=== PATIENT | male | born 1940 | race Caucasian/White ===

== ENCOUNTER 2016-12-07 10:00 | Emergency (ER) | payer MEDICARE, OTHER ==
[~2016-12-07] VITALS: Ht 190.5 cm; Wt 93.6 kg
[2016-12-07 10:07] VITALS: TEMP 97.6
[2016-12-07] MEDS ORDERED: VALIUM 5MG T5 MG/TAB PO (10:32)
[2016-12-07] MEDS ORDERED: NORVASC 5MG5 MG/TAB PO (10:33)
[2016-12-07] MEDS ORDERED: ZYLOPRIM 300MG300 MG PO (10:33)
[2016-12-07] MEDS ORDERED: SINEQUAN 1010 MG/CAP PO (10:38)
[2016-12-07] MEDS ORDERED: COREG 25MG25 MG/TAB PO (10:38)
[2016-12-07] MEDS ORDERED: PEPCID 20MG TAB20 MG PO (10:39)
[2016-12-07] MEDS ORDERED: ZETIA 10MG TAB10 MG PO (10:39)
[2016-12-07] MEDS ORDERED: BENICAR40 MG PO (10:39)
[2016-12-07 10:40] LABS: BASO # 0.1 (0.0-0.2); BASO % 1.2 % (0.0-2.0); EOS # 0.2 (0.0-0.7); GRAN # 4.4 (1.4-6.5); GRAN % 59.4 % (42.2-75.2); HEMATOCRIT 43.8 % (42.0-52.0); HEMOGLOBIN 14.5 g/dl (13.5-18.0); LYMPH # 1.8 (1.2-3.4); LYMPH % 24.4 % (20.0-51.0); MEAN CELL VOLUME 98 fl (80.0-100.0); MEAN CORPUSCULAR HEMOGLOBIN 32 pg (27.0-31.0); MEAN CORPUSCULAR HGB CONC 33 g/dl (33.0-37.0); MEAN PLATELET VOLUME 10.2 fl (7.4-10.4); MONO # 0.9 (0.1-0.6); MONO % 11.9 % (1.7-9.3); PLATELET COUNT 185 K/mm3 (130-400); RED BLOOD COUNT 4.49 M/mm3 (4.20-5.60); REDCELL DISTRIBUTION WIDTH-CV 14.1 % (11.5-14.5); WHITE BLOOD COUNT 7.4 K/mm3 (4.8-10.8)
[2016-12-07] MEDS ORDERED: ASPIRIN 32325 MG/TAB PO (10:40)
[2016-12-07] MEDS ORDERED: PROSCAR 5MG5 MG PO (10:40)
[2016-12-07] MEDS ORDERED: PLAVIX 75MG TAB75 MG PO (10:40)
[2016-12-07] MEDS ORDERED: NEURONTIN300 MG/CAP PO (10:41)
[2016-12-07] MEDS ORDERED: AMBIEN 10MG10 MG PO (10:42)
[2016-12-07] MEDS ORDERED: NORCO 325 MG-51 TAB PO (10:43)
[2016-12-07 10:52] LABS: PROTHROMBIN TIME 10.9 SECONDS (9.7-12.8)
[2016-12-07 10:54] LABS: PARTIAL THROMBOPLASTIN TIME 25.3 SECONDS (26.0-37.0)
[2016-12-07 10:59] LABS: ADJUSTED CALCIUM 9.8 mg/dL (8.4-10.2); ALBUMIN 3.6 gm/dL (3.5-5.0); CALCIUM 9.5 mg/dL (8.4-10.2); CREATININE, serum 1.24 mg/dL (0.66-1.25); POTASSIUM 4.2 mmol/L (3.4-5.0); TOTAL PROTEIN 6.7 gm/dL (6.4-8.2)
[2016-12-07 13:59] LABS: PH 6 (5-8); SQUAMOUS EPITHELIAL None Seen /hpf; URINE APPEARANCE Clear; URINE BACTERIA None Seen /hpf; URINE BILIRUBIN Negative (NEGATIVE); URINE BLOOD Negative (NEGATIVE); URINE COLOR Yellow; URINE GLUCOSE Negative (NEGATIVE); URINE KETONE Negative (NEGATIVE); URINE RBC 0-2 /hpf; URINE UROBILINOGEN Negative (NEGATIVE); URINE WBC 0-2 /hpf
[2016-12-07 14:05] LABS: AMPHETAMINE URINE NEGATIVE; BARBITURATES URINE NEGATIVE; BENZODIAZEPINES URINE NEGATIVE; BUPRENORPHINE URINE NEGATIVE; METHADONE URINE NEGATIVE; OPIATES URINE NEGATIVE; OXYCODONE URINE NEGATIVE; PHENCYCLIDINE URINE NEGATIVE; PROPOXYPHENE URINE NEGATIVE; THC CANNABINOIDS URINE NEGATIVE
[2016-12-07 16:14] VITALS: BP 129/77; PULSE 65
== END 2016-12-07 16:15 | disposition home or self-care (01) ==
LOC: COL.ER 10:00
PROVIDERS: Emergency Medicine
DX: G45.9 Transient cerebral ischemic attack, unspecified (principal); I25.10 Atherosclerotic heart disease of native coronary artery without angina pectoris; Z95.1 Presence of aortocoronary bypass graft; R00.1 Bradycardia, unspecified; Z79.02 Long term (current) use of antithrombotics/antiplatelets
CPT/HCPCS: A9585; J7050